=== PATIENT | female | born 2000 | race Caucasian/White ===

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

== ENCOUNTER 2020-11-01 09:01 | Emergency (ER) | payer MEDICAID, OTHER ==
[~2020-11-01] VITALS: Ht 154.9 cm; Wt 82.8 kg
[~2020-11-01 09:01] MED LIST changes: +BACT2CRE TOP; +DOXY-350 PO
[2020-11-01] MEDS ORDERED: LIDOCAINE W/EPINEPHRINE 1% 20ML VIAL INFIL ONE (11:35)
[2020-11-01] MEDS ORDERED: ACETAMINOPHEN 500 MG TAB PO ONE (11:50)
[2020-11-01] MEDS ORDERED: BACT800T5 PO (12:16)
[2020-11-01 12:25] VITALS: BP 116/76
== END 2020-11-01 12:27 | disposition home or self-care (01) ==
LOC: M ED 09:01
DX: L05.01 Pilonidal cyst with abscess (principal); F17.200 Nicotine dependence, unspecified, uncomplicated

== ENCOUNTER 2020-11-04 15:04 | Emergency (ER) | payer MEDICAID ==
[~2020-11-04] VITALS: Ht 157.5 cm; Wt 84.3 kg
[~2020-11-04 15:04] MED LIST changes: +BACT800T5 PO
[2020-11-04 15:05] VITALS: BP 126/68
== END 2020-11-04 16:22 | disposition home or self-care (01) ==
LOC: M ED 15:04
DX: Z48.00 Encounter for change or removal of nonsurgical wound dressing (principal); F17.200 Nicotine dependence, unspecified, uncomplicated

== ENCOUNTER → 2021-01-16 | Outpatient (CLI) | payer MEDICAID | LOC: M LABSMTC 11:15 | PROVIDERS: ATTEND Anesthesiology | DX: Z01.812 Encounter for preprocedural laboratory examination (principal); Z11.52 Encounter for screening for COVID-19 ==

== ENCOUNTER 2021-01-20 09:28 | Day surgery (SDC) | payer OTHER ==
[~2021-01-20] VITALS: Ht 154.9 cm; Wt 78.5 kg
[~2021-01-20 09:28] MED LIST changes: +CelecoXIB 400 MG CAP PO ONE; +LR 1,000 ML IV ONE; +ceFAZolin SOD 2 GM in IV 1 EA IV ONE
[2021-01-20] MEDS ORDERED: propofoL 200 MG/20 ML VIAL As Ordered ONE ×2 (09:51→12:10)
[2021-01-20] MEDS ORDERED: LIDOCAINE 2% 100MG/5ML SDV (FOR ANES.) As Ordered ONE (09:51)
[2021-01-20] MEDS ORDERED: MIDAZOLAM INJ 2MG/2ML VIAL (J2250 PER 1MG) As Ordered ONE (09:51)
[2021-01-20] MEDS ORDERED: fentaNYL 100 MCG/2 ML INJECTION (J3010) As Ordered ONE (09:51)
[2021-01-20] MEDS ORDERED: LIDOCAINE 1% SDV 30ML VIAL As Ordered ONE (09:54)
[2021-01-20] MEDS ORDERED: BUPIVACAINE HCL 0.25% 30ML VIAL As Ordered ONE (09:54)
[2021-01-20] MEDS ORDERED: CHLOROPROCAINE PRES. FREE 3% 20ML VIAL As Ordered ONE (11:47)
[2021-01-20] MEDS ORDERED: ACETAMINOPHEN 1000MG 100ML IV BTL (OFIRMEV) (J0131 PER 10MG) As Ordered ONE (11:54)
[2021-01-20] MEDS ORDERED: [UNRECOGNIZED DRUG - CODE] TP (12:32)
[2021-01-20] MEDS ORDERED: fentaNYL 100 MCG/2 ML INJECTION (J3010) IV PRN (12:40)
[2021-01-20] MEDS ORDERED: oxyCODONE 5MG TAB PO PRN (12:40)
[2021-01-20] MEDS ORDERED: METOCLOPRAMIDE INJ 10MG/2ML VIAL (J2765 PER 1) IV PRN (12:40)
[2021-01-20] MEDS ORDERED: ONDANSETRON 4MG/2ML VIAL IV PRN (12:40)
[2021-01-20] MEDS ORDERED: LR 1,000 ML IV SCH (12:40)
[2021-01-20 13:05] VITALS: BP 115/71
--- NOTE | 2021-01-20 14:00 | ROOPDOC ---
[facility] Report Of Operation Report of Operation DATE OF PROCEDURE: 01/20/21 PREPROCEDURE DIAGNOSES: pilonidal cyst. POSTPROCEDURE DIAGNOSES: pilonidal cyst. PROCEDURE PERFORMED: Excision of pilonidal cyst. SURGEON: Nikolai Alonzo MD ANESTHESIA: Spinal anesthesia with local anesthesia using 1% lidocaine mixed with 1 4% Marcaine. ESTIMATED BLOOD LOSS: Approximately 10 mL. COMPLICATIONS: none. REMARKS: 20-year-old female with recurrent pilonidal cyst for the past 2 years. Recent exacerbation with emergency room visit, incision and drainage with remaining subcutaneous thickening to the left of the gluteal cleft. FINDINGS: Roughly about a 4 x 2 cm subcutaneous thickening with spongy tissue, both up air within the tissue, no abscess, consistent with chronic pilonidal cyst no lateral tracks. Below the cyst or couple of midline pits which are not active. SPECIMENS REMOVED: Scarred up skin and subcutaneous tissue (not sent for pathology) DESCRIPTION OF PROCEDURE: Patient received a dose of Ancef 2 g IV preoperatively for wound prophylaxis. She was brought to the operating room, spinal anesthesia was established and she was then placed in the prone position with pressure points padded. Monitoring leads were placed. She was provided IV sedation, oxygen via facemask and monitored throughout the procedure. Her buttocks were taped apart. The skin surrounding the sacrococcygeal cleft area was prepped and draped in usual sterile fashion. We paused for a surgical timeout using both pre-incision safety checklist to verify correct patient, procedure site and additional clinical information prior to beginning the procedure She only had sparse hair that are fine and did not need clipping of the hair but does have deep gluteal cleft which makes her prone to the disease. She is skin thickening around the prior I&D site to the left of the midline at the level of the sacrococcygeal cleft area. This extends roughly about 4 x 2 cm. There is a cordlike thickening going towards the midline and inferior to this thickening. There is no active drainage. There is no cellulitis. The skin and surrounding subcutaneous tissue was infiltrated with 1% lidocaine mixed with 1 4% Marcaine. I started with a slight cruciate incision opening of the prior I&D site to enter the subcutaneous collection. Typical spongy loose tissue with a balled up air is noted. There is no active abscess. I slightly extended my incision to get to healthy area and towards the midline. I used a curette to debride the spongy tissue as well as the chronic inflamed adipose tissue around that. The clearly necrotic portions and scarred in portions were likewise removed. We ended up with an opening 4 x 3 x 3 cm deep. Hemostasis achieved with Bovie cautery. I chose to leave the wound open and packed this with 1/2 inch plain gauze packing that is soaked with the lidocaine/Marcaine mixture. Fluffed gauze dressings likewise ABD and mesh underwear then used to cover the incision. Patient tolerated the procedure well. She was promptly awakened, moved back to the stretcher and brought to the recovery room in stable condition. NIKOLAI ALONZO MD Jan 20, 2021 13:59
[2021-01-20] MEDS ORDERED: [UNRECOGNIZED DRUG - SUPPLY] EX (14:33)
== END 2021-01-20 14:40 | disposition home or self-care (01) ==
LOC: M SDC 09:28
PROVIDERS: ATTEND Surgery
DX: L05.91 Pilonidal cyst without abscess (principal); F41.9 Anxiety disorder, unspecified; F32.9 Major depressive disorder, single episode, unspecified; R06.83 Snoring; F17.210 Nicotine dependence, cigarettes, uncomplicated; Z91.048 Other nonmedicinal substance allergy status
CPT/HCPCS: 11770; 81025; J0131; J2250; J2400; J3010

== ENCOUNTER 2021-05-18 13:15 | Emergency (ER) | payer OTHER ==
[~2021-05-18] VITALS: Ht 160 cm; Wt 79.3 kg
[2021-05-18 13:15] VITALS: BP 144/75
[~2021-05-18 13:15] MED LIST changes: -CelecoXIB 400 MG CAP PO ONE; -LR 1,000 ML IV ONE; +[UNRECOGNIZED DRUG - CODE] TP; +[UNRECOGNIZED DRUG - SUPPLY] EX; -ceFAZolin SOD 2 GM in IV 1 EA IV ONE
== END 2021-05-18 18:19 | disposition left against medical advice (07) ==
LOC: M ED 13:15
DX: Z53.21 Procedure and treatment not carried out due to patient leaving prior to being seen by health care provider (principal)

== ENCOUNTER → 2022-05-29 | Outpatient (REF) | payer OTHER ==
[~2022-05-29] MED LIST changes: -DOXY-350 PO; +DOXY-444 PO
== END ==
LOC: M LAB REF 21:36
PROVIDERS: ATTEND Physician Assistant
DX: B34.9 Viral infection, unspecified (principal)

== ENCOUNTER → 2023-05-27 | Outpatient (REF) | LOC: M EMP 07:52 | PROVIDERS: ATTEND Family Medicine | DX: Z11.52 Encounter for screening for COVID-19 (principal) ==

== ENCOUNTER → 2023-08-21 | Outpatient (REF) ==
[2023-08-21 13:17] LABS: RSV AMPLIFICATION NEGATIVE (NEGATIVE)
== END ==
LOC: M EMP 10:36
PROVIDERS: ATTEND Family Medicine
DX: Z11.52 Encounter for screening for COVID-19 (principal)

== ENCOUNTER → 2023-08-27 | Outpatient (REF) | payer OTHER ==
[2023-08-27 18:56] LABS: HEMOGLOBIN A1c 5.1 % (4.0-6.0)
[2023-08-27 19:10] LABS: ALBUMIN 3.8 G/DL (3.2-5.2); ALKALINE PHOSPHATASE 44 U/L (46-116); ALT/SGPT 16 U/L (7.0-40); AST/SGOT 13 U/L (<34); BILIRUBIN,TOTAL 0.3 MG/DL (0.3-1.2); BLOOD UREA NITROGEN 10 MG/DL (9-23); CALCIUM LEVEL 9.4 MG/DL (8.5-10.1); CARBON DIOXIDE LEVEL 24 MMOL/L (20-31); CHLORIDE LEVEL 101 MMOL/L (98-107); CHOLESTEROL LEVEL 171 MG/DL (<200); CHOLESTEROL RISK RATIO 3.13 (<5); CREATININE FOR GFR 0.64 MG/DL (0.55-1.30); GLOMERULAR FILTRATION RATE > 60.0 (>60); GLUCOSE, FASTING 109 MG/DL (60-100); HDL CHOLESTEROL 54.6 MG/DL (>40); LDL CHOLESTEROL 88.2 MG/DL (<100); NON-HDL-C 116.4 MG/DL; POTASSIUM SERUM 4.3 MMOL/L (3.5-5.1); SODIUM LEVEL 135 MMOL/L (136-145); TRIGLYCERIDES LEVEL 141 MG/DL (<150)
[2023-08-27 19:12] LABS: THYROID STIMULATING HORMONE 1.111 uIU/ML (0.55-4.78); TOTAL 25(OH) VITAMIN D 7.6 NG/ML (20.0-100.0)
[2023-08-27 19:42] LABS: HIV 1&2 SCREEN NEGATIVE (NEGATIVE)
== END ==
LOC: M LAB REF 17:32
PROVIDERS: ATTEND Physician Assistant
DX: Z11.9 Encounter for screening for infectious and parasitic diseases, unspecified (principal); E66.9 Obesity, unspecified; E55.9 Vitamin D deficiency, unspecified